=== PATIENT | male | born 1970 ===

== ENCOUNTER 2024-03-06 04:32 | Day surgery (SDC) | payer OTHER ==
[2024-03-04 13:55] VITALS: BMI 35.1
[2024-03-06 12:24] VITALS: TEMP 97.3
[2024-03-06 12:47] VITALS: RESP 16
[2024-03-06 13:00] VITALS: BP 118/72; PULSE 52
== END 2024-03-06 12:59 | disposition home or self-care (01) ==
LOC: JASU-ENDO 04:32
PROVIDERS: ATTEND Internal Medicine Gastroenterology
PROC: 0DJ08ZZ Inspection of Upper Intestinal Tract, Via Natural or Artificial Opening Endoscopic (ICD-10-PCS; 2024-03-06)
PROC: 0DJ08ZZ Inspection of Upper Intestinal Tract, Via Natural or Artificial Opening Endoscopic (ICD-10-PCS; principal; 2024-03-06 10:30)
DX: K74.60 Unspecified cirrhosis of liver (principal); I85.00 Esophageal varices without bleeding

== ENCOUNTER 2024-08-28 05:12 | Day surgery (SDC) | payer OTHER ==
[2024-08-27 10:44] VITALS: BMI 32.2
[2024-08-28 12:50] VITALS: TEMP 97.6
[2024-08-28 12:54] VITALS: RESP 18
[2024-08-28 13:45] VITALS: BP 125/65; PULSE 63
== END 2024-08-28 13:55 | disposition home or self-care (01) ==
LOC: JASU-ENDO 05:12
PROVIDERS: ATTEND Internal Medicine Gastroenterology
PROC: 06L38CZ Occlusion of Esophageal Vein with Extraluminal Device, Via Natural or Artificial Opening Endoscopic (ICD-10-PCS; principal; 2024-08-28 11:00)
DX: I85.00 Esophageal varices without bleeding (principal)